=== PATIENT | male | born 1940 | race Hispanic/Latino ===

== ENCOUNTER 2023-10-25 14:59 | Inpatient (IN) | payer MEDICARE ==
[~2023-10-25] VITALS: Ht 157.5 cm; Wt 53.5 kg
[2023-10-25] VITALS (27 sets, daily range): BP systolic 81–114; BP diastolic 43–83; PULSE 61–110; RESP 20–47; O2SAT 95–96
[2023-10-25 15:12] LABS: ABG BASE EXCESS -12.7 mmol/L (-2.0-3.0); ABG HCO3 10.3 mmol/L (21.0-28.0); ABG OXYGEN SATURATION 87.1 % (95.0-99.0); ABG PCO2 18 mmHg (35-48); CARBON MONOXIDE 2.6; HHb 12.5; PO2, ARTERIAL BG 56.4 mmHg (83.0-108.0); VENT MODE, BG NRM (ROOM AIR)
[2023-10-25 15:18] LABS: BASOPHILS # (AUTO) 0.05 K/uL (0.00-0.20); BASOPHILS % (AUTO) 0.3 % (0.0-5.0); HEMATOCRIT 36.2 % (42-54); IMMATURE GRANULOCYTE ABSOLUTE 0.14 K/uL (0-1); LYMPHOCYTES # (AUTO) 0.4 K/uL (1.0-4.8); LYMPHOCYTES % (AUTO) 2.5 % (21.0-51.0); MEAN CORPUSCULAR HEMOGLOBIN 32.4 pg (27.0-33.0); MEAN CORPUSCULAR HGB CONC 32.6 g/dL (32.0-36.0); MEAN CORPUSCULAR VOLUME 99.5 fL (79-99); MONOCYTES # (AUTO) 0.3 K/uL (0.1-1.0); MONOCYTES % (AUTO) 1.8 % (3.0-13.0); NEUTROPHILS # (AUTO) 16.8 K/uL (1.8-7.7); NEUTROPHILS % (AUTO) 94.6 % (40.0-77.0); PLATELET COUNT (AUTO) 200 K/uL (130-400); RED BLOOD CELL COUNT(AUTO) 3.64 MIL/uL (4.50-6.20); RED CELL DISTRIBUTION WIDTH 14.6 % (11.0-15.5); WHITE BLOOD COUNT (AUTO) 17.7 K/uL (4.8-10.8)
[2023-10-25 15:40] LABS: ALBUMIN 2.2 g/dL (3.5-5.0); BILIRUBIN,TOTAL 2.7 mg/dL (0.2-1.0); CREATININE 6.2 mg/dL (0.5-1.5); TOTAL PROTEIN, SERUM 6.3 g/dL (6.0-8.3)
[2023-10-25 15:42] LABS: B-TYPE NATRIURETIC PEPTIDE 80 pg/mL (0-100)
[2023-10-25 15:56] LABS: POTASSIUM 6.9 mmol/L (3.5-5.1)
[2023-10-25 15:57] LABS: APPEARANCE,URINE CLOUDY (CLEAR); BILIRUBIN,URINE NEGATIVE (NEGATIVE); COLOR,URINE YELLOW (YELLOW); GLUCOSE, URINE (UA) NEGATIVE (NEGATIVE); KETONES,URINE NEGATIVE (NEGATIVE); LEUKOCYTE ESTERASE ,URINE NEGATIVE Leu/uL (NEGATIVE); NITRATE,URINE NEGATIVE (NEGATIVE); OCCULT BLOOD,URINE NEGATIVE (NEGATIVE); PROTEIN,URINE 20 mg/dL (NEGATIVE); UROBILINOGEN,URINE 0.2 mg/dL (0.2-1.0)
[2023-10-25] MEDS ORDERED: ZOSYN 3.375GM +NS 50ML IV SCH (16:00)
[2023-10-25] MEDS ORDERED: VANCOMYCIN PROTOCOL PER PHARMACY IV SCH (16:00)
[2023-10-25] MEDS: DEXMEDETOMIDINE 400MCG/NS100ML IV SCH (16:23)
[2023-10-25] MEDS: 0.9%NACL 1000ML 1,638 ML IV ONE (16:23)
[2023-10-25] MEDS ORDERED: GUAIFENESIN SUGAR-FREE 100 MG/5 ML UDCUP PO PRN (16:30)
[2023-10-25] MEDS ORDERED: DIPHENHYDRAMINE HCL 25 MG CAPSULE PO PRN (16:30)
[2023-10-25] MEDS ORDERED: ALPRAZOLAM 0.5 MG TABLET PO PRN (16:30)
[2023-10-25] MEDS ORDERED: HYDRALAZINE 25MG TABLET PO PRN (16:30)
[2023-10-25] MEDS ORDERED: DiphenhydrAMINE HCL 50 MG/ML VIAL IV PRN (16:30)
[2023-10-25] MEDS ORDERED: ACETAMINOPHEN 325 MG TAB PO PRN ×2 (16:30)
[2023-10-25] MEDS: CEFEPIME HCL 1 GM VIAL IVPB SCH (16:30)
[2023-10-25] MEDS ORDERED: CEFEPIME HCL 2 GM VIAL IVPB SCH (16:30)
[2023-10-25] MEDS ORDERED: DOCUSATE SODIUM 100 MG CAP PO PRN (16:30)
[2023-10-25] MEDS ORDERED: LACTULOSE 20 GM/30 ML UDCUP PO PRN (16:30)
[2023-10-25] MEDS ORDERED: ONDANSETRON 4MG INJ IV PRN (16:30)
[2023-10-25] MEDS ORDERED: GUAIFENESIN-DM 200/20 MG 10 ML PO PRN (16:30)
[2023-10-25] MEDS ORDERED: MAG/ALUM/SIMETH 30 ML UDCUP PO PRN (16:30)
[2023-10-25] MEDS ORDERED: ZOLPIDEM TARTRATE 5 MG TAB PO PRN (16:30)
[2023-10-25] MEDS ORDERED: POLYETHYLENE GLYCOL 3350 17 GM POWD.PACK PO PRN (16:30)
[2023-10-25] MEDS ORDERED: NITROGLYCERIN 0.4 MG SL TAB SL PRN (16:30)
[2023-10-25] MEDS ORDERED: PHARMACY COMMUNICATION MISC SCH (16:30)
[2023-10-25] MEDS: ALBUTEROL 0.083% 2.5 MG/3 ML INH IH ONE (16:32)
[2023-10-25] MEDS: SODIUM BICARB 50MEQ 50ML VIAL IV ONE ×2 (16:33→18:56)
[2023-10-25] MEDS: DEXTROSE 50%-WATER 50 ML DISP.SYRIN IV ONE (16:33)
[2023-10-25 16:34] LABS: BAND NEUTROPHILS % (MANUAL) 13 % (0-2); LYMPHOCYTES % (MANUAL) 3 % (22-44); MAN.DIFF COMMENT-IMPRESSION MANUAL DIFFERENTIAL; MONOCYTES % (MANUAL) 1 % (2-9); SEGMENTED NEUTROPHILS % 83 % (40-70); TOTAL CELLS COUNTED 100
[2023-10-25] MEDS: INSULIN HUMULIN R 100 UNIT/ML 3ML IV ONE (16:36)
[2023-10-25] MEDS: CALCIUM GLUC 1GM/10ML VIAL ONE (16:37)
[2023-10-25] MEDS: CALCIUM GLUC 1GM 1 GM in 0.9%NACL 100ML 100 ML IV ONE (16:37)
[2023-10-25 16:49] LABS: BACTERIA,URINE FEW /HPF (None Seen); MUCUS,URINE RARE LPF (None Seen); SQUAMOUS EPITHELIAL CELL,UR RARE /HPF (0-2); UNCLASSIFIED CRYSTAL 6 /HPF (None Seen); YEAST,URINE BUDDING FEW /HPF (None Seen)
[2023-10-25] MEDS: AZITHROMYCIN 500MG+NS 250ML 250 ML IVPB SCH (17:18)
[2023-10-25] MEDS: HEPARIN 5,000 UNIT VIAL SQ SCH (17:21)
[2023-10-25] MEDS: INSULIN HUMULIN R 100 UNIT/ML 3ML SQ SCH (18:00)
[2023-10-25 18:03] LABS: INFLUENZA TYPE A Negative For Type A (NEGATIVE); INFLUENZA TYPE B Negative For Type B (NEGATIVE)
[2023-10-25 18:06] LABS: SARS-CoV-2, RNA, NAAT POSITIVE SARS CoV-2 (NEGATIVE)
[2023-10-25] MEDS: SODIUM BICARB 8.4% 50ML SYRING 150 MEQ in DEXTROSE 5%-WATER 1,000 ML IVP SCH (18:56)
[2023-10-25] MEDS: VANCOMYCIN 1G/250ML KIT 250 ML IV ONE (18:58)
[2023-10-25] MEDS: FAMOTIDINE 20MG VIAL IV SCH (21:13)
[2023-10-25] MEDS ORDERED: AMLO-257 PO (23:03)
[2023-10-25] MEDS ORDERED: LISI20TA24 PO (23:03)
[2023-10-25 23:13] LABS: CREATININE 6.1 mg/dL (0.5-1.5); POTASSIUM 4.7 mmol/L (3.5-5.1)
[2023-10-26] VITALS (65 sets, daily range): BP systolic 75–155; BP diastolic 30–82; PULSE 42–112; RESP 15–173; O2SAT 92–100
[2023-10-26] MEDS: PHENYLEPHRINE HCL 10 MG/ML 1ML VIAL IV ONE (01:58)
[2023-10-26] MEDS: PHENYLEPHRINE HCL 10 MG/ML 5ML VIAL IV ONE (02:00)
[2023-10-26] MEDS ORDERED: PHENYLEPHRINE HCL 10 MG in 0.9% NACL 250ML 250 ML IV PRN (02:00)
[2023-10-26 04:35] LABS: BASOPHILS # (AUTO) 0.04 K/uL (0.00-0.20); BASOPHILS % (AUTO) 0.2 % (0.0-5.0); HEMATOCRIT 29.6 % (42-54); IMMATURE GRANULOCYTE ABSOLUTE 0.11 K/uL (0-1); LYMPHOCYTES # (AUTO) 0.4 K/uL (1.0-4.8); LYMPHOCYTES % (AUTO) 1.8 % (21.0-51.0); MEAN CORPUSCULAR HEMOGLOBIN 32.5 pg (27.0-33.0); MEAN CORPUSCULAR HGB CONC 33.8 g/dL (32.0-36.0); MEAN CORPUSCULAR VOLUME 96.1 fL (79-99); MONOCYTES # (AUTO) 0.3 K/uL (0.1-1.0); MONOCYTES % (AUTO) 1.5 % (3.0-13.0); NEUTROPHILS # (AUTO) 18.9 K/uL (1.8-7.7); NEUTROPHILS % (AUTO) 95.9 % (40.0-77.0); PLATELET COUNT (AUTO) 162 K/uL (130-400); RED BLOOD CELL COUNT(AUTO) 3.08 MIL/uL (4.50-6.20); RED CELL DISTRIBUTION WIDTH 14.6 % (11.0-15.5); WHITE BLOOD COUNT (AUTO) 19.7 K/uL (4.8-10.8)
[2023-10-26 04:50] LABS: ALBUMIN 1.7 g/dL (3.5-5.0); BILIRUBIN,TOTAL 2.2 mg/dL (0.2-1.0); CREATININE 6.2 mg/dL (0.5-1.5); POTASSIUM 5.1 mmol/L (3.5-5.1); TOTAL PROTEIN, SERUM 5.6 g/dL (6.0-8.3)
[2023-10-26] MEDS: DEXAMETHASONE SOD PHOSPHATE 4 MG/ML 1ML VIAL IV SCH (09:12)
[2023-10-26] MEDS: LACTATED RINGERS 1000ML IV SCH (10:22)
[2023-10-26 10:37] LABS: CREATININE 5.3 mg/dL (0.5-1.5); POTASSIUM 4.2 mmol/L (3.5-5.1)
[2023-10-26 11:23] LABS: ABG BASE EXCESS -0.9 mmol/L (-2.0-3.0); ABG HCO3 21.1 mmol/L (21.0-28.0); ABG OXYGEN SATURATION 99.7 % (95.0-99.0); ABG PCO2 28 mmHg (35-48); ABG PH 7.491 (7.35-7.450); DEVICE COMMENT RR SERGIO RN; VENT MODE, BG BIPAP 10 5 (ROOM AIR)
[2023-10-26] MEDS: LACTATED RINGERS 1000ML 1,638 ML IV ONE (11:38)
[2023-10-26] MEDS: DEXTROSE 5%-WATER 1,000 ML IV SCH (12:04)
[2023-10-26 13:35] LABS: CHLORIDE,URINE RANDOM 39 mmol/L (110-250); CREATININE,URINE RANDOM 43 mg/dL (30-135); POTASSIUM,URINE RANDOM 34 mmol/L (25-125); PROTEIN,URINE RANDOM 78.4 mg/dL (0-11.9); SODIUM,URINE RANDOM 40 mmol/l (40-220)
[2023-10-26 13:39] LABS: APPEARANCE,URINE CLOUDY (CLEAR); BILIRUBIN,URINE NEGATIVE (NEGATIVE); COLOR,URINE YELLOW (YELLOW); GLUCOSE, URINE (UA) NEGATIVE (NEGATIVE); KETONES,URINE NEGATIVE (NEGATIVE); LEUKOCYTE ESTERASE ,URINE NEGATIVE Leu/uL (NEGATIVE); NITRATE,URINE NEGATIVE (NEGATIVE); OCCULT BLOOD,URINE LARGE (NEGATIVE); PROTEIN,URINE 30 mg/dL (NEGATIVE); UROBILINOGEN,URINE 0.2 mg/dL (0.2-1.0)
[2023-10-26 14:15] LABS: ADD UA MICROSCOPIC YES
[2023-10-26 14:21] LABS: RBC,URINE 0-1 /HPF (0-1)
[2023-10-26 14:22] LABS: BACTERIA,URINE Rare /HPF (None Seen); WBC,URINE 0-1 /HPF (0-1)
[2023-10-26] MEDS: MORPHINE 2 MG SYG IVP PRN (15:58)
[2023-10-26] MEDS: LORAZEPAM 2 MG/ML 1 ML VIAL IVP PRN (15:58)
[2023-10-26] MEDS ORDERED: ACETAMINOPHEN 650 MG SUPPOSITORY RC PRN (21:00)
[2023-10-27] VITALS (8 sets, daily range): BP systolic 113–120; BP diastolic 61–67; PULSE 71–88; RESP 16–22; O2SAT 92–99
[2023-10-27] MEDS: VANCOMYCIN 1G/250ML KIT 250 ML IV ONE (12:59)
[2023-10-27] MEDS: SODIUM BICARB 50MEQ 50ML VIAL 50 ML ONE (12:59)
[2023-10-27] MEDS ORDERED: ONDANSETRON 4MG INJ IVP PRN (19:30)
[2023-10-27] MEDS ORDERED: BISACODYL 10 MG SUPP.RECT RC PRN (19:30)
[2023-10-27] MEDS ORDERED: LORAZEPAM 2 MG/ML 1 ML VIAL IVP PRN (19:30)
[2023-10-27] MEDS ORDERED: ACETAMINOPHEN 650 MG SUPPOSITORY RC PRN (19:30)
[2023-10-27] MEDS ORDERED: MORPHINE 2 MG SYG IVP PRN ×2 (19:30)
[2023-10-27] MEDS ORDERED: GLYCOPYRROLATE 0.2 MG/ML 5 ML VIAL IVP SCH (19:30)
[2023-10-28 06:03] LABS: BASOPHILS # (AUTO) 0.02 K/uL (0.00-0.20); BASOPHILS % (AUTO) 0.1 % (0.0-5.0); HEMATOCRIT 32.1 % (42-54); IMMATURE GRANULOCYTE ABSOLUTE 0.11 K/uL (0-1); LYMPHOCYTES # (AUTO) 0.2 K/uL (1.0-4.8); LYMPHOCYTES % (AUTO) 1.8 % (21.0-51.0); MEAN CORPUSCULAR HEMOGLOBIN 32.7 pg (27.0-33.0); MEAN CORPUSCULAR HGB CONC 32.4 g/dL (32.0-36.0); MEAN CORPUSCULAR VOLUME 100.9 fL (79-99); MONOCYTES # (AUTO) 0.2 K/uL (0.1-1.0); MONOCYTES % (AUTO) 1.6 % (3.0-13.0); NEUTROPHILS % (AUTO) 95.7 % (40.0-77.0); PLATELET COUNT (AUTO) 192 K/uL (130-400); RED BLOOD CELL COUNT(AUTO) 3.18 MIL/uL (4.50-6.20); RED CELL DISTRIBUTION WIDTH 15.4 % (11.0-15.5); WHITE BLOOD COUNT (AUTO) 13.6 K/uL (4.8-10.8)
[2023-10-29] MEDS ORDERED: VANCOMYCIN 750MG VIAL IVPB SCH (22:00)
== END 2023-10-27 18:37 | disposition hospice, inpatient (51) | DRG 871 ==
LOC: EDH 14:59 → UNDOADMIN 15:00 → 2CH 15:00 → 3DH 10-26 16:30 → UNDODISIN 10-28 00:13
PROVIDERS: ADMIT Internal Medicine; ATTEND Internal Medicine
PROC: 5A09357 Assistance with Respiratory Ventilation, Less than 24 Consecutive Hours, Continuous Positive Airway Pressure (ICD-10-PCS; principal; 2023-10-25)
PROC: 5A09357 Assistance with Respiratory Ventilation, Less than 24 Consecutive Hours, Continuous Positive Airway Pressure (ICD-10-PCS; 2023-10-26)
DX: A41.89 Other specified sepsis (principal); G92.8 Other toxic encephalopathy; J96.01 Acute respiratory failure with hypoxia; U07.1 COVID-19; J12.82 Pneumonia due to coronavirus disease 2019; N17.0 Acute kidney failure with tubular necrosis; R65.21 Severe sepsis with septic shock; E87.20 Acidosis, unspecified; N17.9 Acute kidney failure, unspecified; E44.0 Moderate protein-calorie malnutrition; E87.1 Hypo-osmolality and hyponatremia; R65.20 Severe sepsis without septic shock; E87.5 Hyperkalemia; I12.9 Hypertensive chronic kidney disease with stage 1 through stage 4 chronic kidney disease, or unspecified chronic kidney disease; N18.9 Chronic kidney disease, unspecified; Z66 Do not resuscitate; E86.0 Dehydration; F03.90 Unspecified dementia, unspecified severity, without behavioral disturbance, psychotic disturbance, mood disturbance, and anxiety; R62.7 Adult failure to thrive; Z87.891 Personal history of nicotine dependence; Z51.5 Encounter for palliative care; Z74.01 Bed confinement status; Z86.16 Personal history of COVID-19; Z79.899 Other long term (current) drug therapy; Z68.21 Body mass index [BMI] 21.0-21.9, adult
CPT/HCPCS: 36415; 36600; 71045; 76775; 80048; 80051; 80053; 81001; 82010; 82140; 82435; 82570; 82803; 82947; 82948; 83605; 83880; 83935; 84132; 84156; 84295; 84484; 85018; 85025; 87040; 87077; 87088; 87186; 87635; 87804; 93005; 94640; 94660; 99291; G0378; J0456; J0610; J0692; J1100; J1644; J1815; J2060; J2270; J2370; J2371; J3370; J3490; J7050; J7070